=== PATIENT | male | born 1980 | race African-American/Black ===

== ENCOUNTER 2016-09-15 19:56 | Emergency (ER) | payer SELFPAY ==
[~2016-09-15] VITALS: Ht 66 cm; Wt 70.1 kg
[~2016-09-15 19:56] MED LIST: BACTRIM DS1 TAB PO; DENIES CURRENT MEDS; LORTAB 5 OR; LORTAB 7.5 PO; NAPROSYN500 MG PO; NO HOME MEDS; PENICILLN VK500 MG OR; PROMETHAZINE25 MG PO
[2016-09-15 20:35] LABS: HEMATOCRIT 39.8 % (39.0-50.0); HEMOGLOBIN 13.3 g/dl (14.0-18.0); IMMATURE GRANULOCYTES 0.3 % (0.0-1.0); MEAN CORPUSCULAR HGB 31.7 pG CALC (26.0-32.0); MEAN CORPUSCULAR HGB CONC 33.4 g/L CALC (32.0-36.0); NEUT# 1.36 thou/uL (1.82-7.42); RED BLOOD COUNT 4.19 mill/uL (4.70-6.10); RED CELL DISTRI WIDTH 11.9 % (11.5-15.5)
[2016-09-15 20:37] LABS: URINE BILIRUBIN - DIPSTICK NEGATIVE (NEGATIVE); URINE BLOOD DIPSTICK NEGATIVE (NEGATIVE); URINE CLARITY CLEAR; URINE COLOR YELLOW; URINE GLUCOSE - DIPSTICK NEGATIVE (NEGATIVE); URINE KETONE NEGATIVE (NEGATIVE); URINE LEUK ESTERASE NEGATIVE (NEGATIVE); URINE NITRITE - DIPSTICK NEGATIVE (Negative); URINE PROTEIN - DIPSTICK NEGATIVE (NEG-TRACE); URINE UROBILINOGEN - DIPSTICK 0.2 E.U./dL (0.2)
[2016-09-15 20:46] LABS: BARBITURATES NEGATIVE (NEGATIVE); COCAINE NEGATIVE (NEGATIVE); METHADONE NEGATIVE (NEGATIVE); TETRAHYDROCANNABIONOL POSITIVE (NEGATIVE); TRICYLIC ANTIDEPRESSANTS NEGATIVE (NEGATIVE)
[2016-09-15 20:47] LABS: OXCYCODONE NEGATIVE (NEGATIVE)
[2016-09-15 21:01] LABS: ALBUMIN 4.1 g/dL (3.2-5.0); ALKALINE PHOSPHATASE 63 u/l (38-126); ANION GAP 13 (6-22 (CALC)); BILIRUBIN, TOTAL 0.8 mg/dL (0.0-1.4); BUN 9 mg/dL (9-20); BUN/CREATININE RATIO 9 (12-20 (CALC)); CALCIUM 9.1 mg/dL (8.4-10.2); CARBON DIOXIDE 26 mmol/l (22-30); CHLORIDE 105 mmol/l (95-108); GFR > 60 ML/MIN (>=60 (CALC)); GFR FOR AFR.AMER. > 60 ML/MIN (>=60 (CALC)); GLUCOSE 78 mg/dL (75-110); MAGNESIUM 2.1 mg/dL (1.6-2.3); POTASSIUM 3.6 mmol/l (3.5-5.1); SGOT/AST 28 u/l (17-59); SGPT/ALT 31 u/l (21-72); SODIUM 140 mmol/l (137-146); TOTAL PROTEIN 7.2 g/dL (6.3-8.2)
[2016-09-15 21:04] LABS: ETHYL ALCOHOL 0 mg/dl (0-30)
[2016-09-16 06:25] VITALS: BP 136/96
== END 2016-09-16 06:48 | disposition home or self-care (01) | DRG 918 ==
LOC: ED 19:56
PROVIDERS: Emergency Medicine
DX: T42.4X1A Poisoning by benzodiazepines, accidental (unintentional), initial encounter (principal); Y92.007 Garden or yard of unspecified non-institutional (private) residence as the place of occurrence of the external cause

== ENCOUNTER 2016-10-20 20:07 | Emergency (ER) | payer SELFPAY ==
[~2016-10-20] VITALS: Ht 188 cm; Wt 72.8 kg
[2016-10-20 20:44] VITALS: BP 133/86
== END 2016-10-20 20:32 | disposition left against medical advice (07) | DRG 605 ==
LOC: ED 20:07
DX: S00.83XA Contusion of other part of head, initial encounter (principal); Y04.0XXA Assault by unarmed brawl or fight, initial encounter; Y92.009 Unspecified place in unspecified non-institutional (private) residence as the place of occurrence of the external cause

== ENCOUNTER 2017-01-29 17:35 | Emergency (ER) | payer SELFPAY ==
[~2017-01-29] VITALS: Ht 188 cm; Wt 80.0 kg
[2017-01-29 18:10] LABS: HEMATOCRIT 42.4 % (39.0-50.0); MEAN CELL VOLUME 97.5 fL CALC (80.0-100.0); MEAN CORPUSCULAR HGB 32.2 pG CALC (26.0-32.0); NEUT# 0.94 thou/uL (1.82-7.42); RED BLOOD COUNT 4.35 mill/uL (4.70-6.10); RED CELL DISTRI WIDTH 12.7 % (11.5-15.5)
[2017-01-29 18:21] LABS: ALBUMIN 4.1 g/dL (3.2-5.0); ALKALINE PHOSPHATASE 64 u/l (38-126); ANION GAP 13 (6-22 (CALC)); BILIRUBIN, TOTAL 0.9 mg/dL (0.0-1.4); BUN 19 mg/dL (9-20); BUN/CREATININE RATIO 16 (12-20 (CALC)); CALCIUM 9.3 mg/dL (8.4-10.2); CARBON DIOXIDE 28 mmol/l (22-30); CHLORIDE 106 mmol/l (95-108); CREATININE 1.2 mg/dL (0.7-1.3); GFR > 60 ML/MIN (>=60 (CALC)); GFR FOR AFR.AMER. > 60 ML/MIN (>=60 (CALC)); GLUCOSE 91 mg/dL (75-110); POTASSIUM 3.9 mmol/l (3.5-5.1); SGOT/AST 24 u/l (17-59); SGPT/ALT 27 u/l (21-72); SODIUM 143 mmol/l (137-146); TOTAL PROTEIN 7.1 g/dL (6.3-8.2)
[2017-01-29 19:36] VITALS: BP 122/82
== END 2017-01-29 19:36 | DRG 951 ==
LOC: ED 17:35
PROVIDERS: Emergency Medicine
DX: Z02.89 Encounter for other administrative examinations (principal); D70.9 Neutropenia, unspecified; F32.9 Major depressive disorder, single episode, unspecified; F41.9 Anxiety disorder, unspecified

== ENCOUNTER 2017-04-09 13:09 | Emergency (ER) | payer SELFPAY ==
[~2017-04-09] VITALS: Ht 188 cm; Wt 80.0 kg
[2017-04-09 14:34] VITALS: BP 138/88
[2017-04-09] MEDS ORDERED: NAPROSYN500 MG PO (14:43)
== END 2017-04-09 14:53 | DRG 605 ==
LOC: ED 13:09
DX: S40.011A Contusion of right shoulder, initial encounter (principal); S20.229A Contusion of unspecified back wall of thorax, initial encounter; Y35.813A Legal intervention involving manhandling, suspect injured, initial encounter; Y92.009 Unspecified place in unspecified non-institutional (private) residence as the place of occurrence of the external cause